=== PATIENT | female | born 1975 | race Caucasian/White ===

== ENCOUNTER → 2025-07-09 | Day surgery (SDC) | payer BC ==
[~2025-07-09] MED LIST: LIDOCAINE HCL 2% LOCAL INJ 5 ML SDV VIAL INJ ONE; METOCLOPRAMIDE HCL 10 MG/2ML VIAL ONE; MIDAZOLAM HCL 2 MG/2 ML VIAL ONE; PROPOFOL IV EMULSION 10 MG/ML 20 ML VIAL ONE
[2025-07-09] MEDS: LACTATED RINGER'S 1,000 ML ONE (08:02)
[2025-07-09 10:15] VITALS: TEMP 97.7
[2025-07-09 10:45] VITALS: BP 110/68; PULSE 68; RESP 16; O2SAT 97
== END | disposition home or self-care (01) ==
LOC: OR 07:13
PROVIDERS: ATTEND Internal Medicine Gastroenterology
DX: Z12.11 Encounter for screening for malignant neoplasm of colon (principal); K64.8 Other hemorrhoids; Z71.6 Tobacco abuse counseling; Z72.0 Tobacco use; Z71.89 Other specified counseling; Z80.0 Family history of malignant neoplasm of digestive organs
CPT/HCPCS: 45378; 81025; J2003; J2250; J2704; J2765; J7121